=== PATIENT | male | born 1940 | race Caucasian/White ===

== ENCOUNTER 2017-10-29 16:31 | Emergency (ER) | payer MEDICARE ==
--- NOTE | 2017-10-29 16:59 | ED.PDOC ---
History of Present Illness - General Chief Complaint: Neuro Symptoms/Deficits Stated Complaint: dizzness Time Seen by Provider: 10/29/17 16:48 Source: patient, family Exam Limitations: no limitations - History of Present Illness Timing/Duration: 1 week Severity: moderate Improving Factors: rest Worsening Factors: movement Associated Symptoms: denies symptoms Allergies/Adverse Reactions: Allergies NO KNOWN ALLERGY Allergy (Verified 10/29/17 16:55) Review of Systems - Review of Systems Constitutional: Denies: chills, diaphoresis, fever, malaise, weakness EENTM: Denies: eye pain, blurred vision, tearing, double vision, ear pain, ear discharge, nose pain, nose congestion, throat pain, throat swelling, mouth pain , mouth swelling Respiratory: Denies: cough, short of breath Cardiology: Denies: chest pain, edema, palpitations, syncope Gastrointestinal/Abdominal: Denies: abdominal pain, constipation, diarrhea, nausea, vomiting Genitourinary: Denies: dysuria, frequency Musculoskeletal: Denies: joint pain, joint swelling Skin: Denies: dryness, lesions Neurological: States: weakness, other - when he tries to walk or stand up he feels unstead. Denies: depressed, headache Endocrine: Denies: increased hunger, increased thirst, increased urine Hematologic/Lymphatic: Denies: blood clots, easy bleeding All other Systems: Reviewed and Negative Past Medical History (General) - Patient Medical History Hx Seizures: No Hx Stroke: No Hx Dementia: No Hx Asthma: No Hx Cardiac Disorders: Yes Hx Pacemaker: No Surgical History: angioplasty - Social History Hx Tobacco Use: No Hx Substance Use: No Family Medical History - Family History Grandparents Family History: Unknown Physical Exam - Physical Exam General Appearance: Alert, Comfortable, Well Developed, Well Groomed, Well Hydrated, Well Nourished Eye Exam: bilateral normal ENT Exam: normal ENT inspection, TMs normal Neck: non-tender, full range of motion, supple, normal inspection Respiratory: chest non-tender, lungs clear, normal breath sounds, no respiratory distress, no accessory muscle use Cardiovascular/Chest: normal peripheral pulses, regular rate, rhythm, no edema, no gallop, no JVD, no murmur Peripheral Pulses: radial,right: 2+, radial,left: 2+ Gastrointestinal/Abdominal: normal bowel sounds, non tender, soft, no organomegaly, no pulsatile mass Back Exam: normal inspection, no CVA tenderness, no vertebral tenderness Extremities Exam: non-tender, normal range of motion Mental Status: alert, oriented x 3 supervisor shop Exam: normal hearing, normal speech, PERRL, other - no facial droop, paresthesia, gaze palsy Coordination/Gait: abnormal gait, positive Romberg's sign Motor/Sensory: no motor deficit - has some dysdiadikokenesia on the left, no sensory deficit, no pronator drift Skin Exam: normal color, warm/dry Progress - Progress Progress: 10/29/17 17:01 A CHART REVIEW HAS BEEN PERFORMED, THIS PATIENT HAS NOT BEEN SEEN IN THIS ED PRIOR TO TODAY. here with a LBBB from the clinic without chest pain, SOB, COUGH. HAS SOME LEFT DYSDIADIKOKENESIA, HAS + RHOMBERG, HAS SOME ATAXIA. WILL EVAL FOR CVA, ELECTROLYTE DERANGEMENT, DOES NOT APPEAR TO HAVE PROXIMAL MUSCLE WEAKNESS. 10/29/17 18:48 CT OF THE HEAD IS UNREMARKABLE. BLOOD WORK SHOWS A MILDLY ELEVATED CP MB. WE DO NOT HAVE MRI TO EVAL FOR CEREBELLAR INFARCTION. ALTHOUGH HE IS MULTIPLE DAYS OUT. I HAVE TALKED TO JACKIE WATERMAN FEELS PATIENT NEEDS TO BE TRANSFERRED RATHER THAN ADMITTED. I HAVE DISCUSSED WITH DR ADAL BAILEY WILL TAKE THE PATIENT IN TRANSFER FOR MRI AND LIKELY NEUROLOGY EVAL IN THE AM. - Results/Orders Results/Orders: 10/29/17 16:50 Telemetry ONCE Laboratory Results - last 24 hr 10/29/17 10/29/17 10/29/17 16:50 16:59 16:59 WBC 5.6 RBC 5.15 Hgb 14.0 Hct 42.8 MCV 83.2 MCH 27.3 MCHC 32.8 L RDW 14.9 H Plt Count 213 MPV 7.2 L Absolute Neuts (auto) 3.80 Absolute Lymphs (auto) 1.10 Absolute Monos (auto) 0.60 Absolute Eos (auto) 0.10 Absolute Basos (auto) 0.00 Neutrophils % 67.7 Lymphocytes % 19.3 L Monocytes % 11.4 H Eosinophils % 1.1 Basophils % 0.5 ESR Sodium 140 Potassium 3.9 Chloride 105 Carbon Dioxide 26 Anion Gap 12.9 BUN 22 H Creatinine 0.97 BUN/Creatinine Ratio 22.7 H Random Glucose 92 Serum Osmolality 282.4 Calcium 8.9 Total Bilirubin 0.5 AST 30 ALT 35 Alkaline Phosphatase 99 Creatine Kinase 158 CK-MB (CK-2) 5.3 H* CK-MB (CK-2) % Not Reportable Troponin I < 0.02 Serum Total Protein 7.8 Albumin 4.0 Globulin 3.8 H Albumin/Globulin Ratio 1.1 10/29/17 16:59 WBC RBC Hgb Hct MCV MCH MCHC RDW Plt Count MPV Absolute Neuts (auto) Absolute Lymphs (auto) Absolute Monos (auto) Absolute Eos (auto) Absolute Basos (auto) Neutrophils % Lymphocytes % Monocytes % Eosinophils % Basophils % ESR 5 Sodium Potassium Chloride Carbon Dioxide Anion Gap BUN Creatinine BUN/Creatinine Ratio Random Glucose Serum Osmolality Calcium Total Bilirubin AST ALT Alkaline Phosphatase Creatine Kinase CK-MB (CK-2) CK-MB (CK-2) % Troponin I Serum Total Protein Albumin Globulin Albumin/Globulin Ratio Departure - Departure Clinical Impression: Ataxia Time of Disposition: 18:51 Disposition: Transfer to Hospital Condition: Fair Departure Forms: ED Discharge - Pt. Copy, Patient Portal Self Enrollment Transfer to Outside Facility - Transfer Information Accepting Provider:: DR ADAL BAILEY Accepting Facility: [facility] Reason for Transfer: specialized care not available
--- NOTE | 2017-10-29 17:28 | CT ---
Procedure: CT HEAD WITHOUT IV CONTRAST Exam Date: 10/29/2017 4:48 PM [employer] Ordering Provider: Mac Sales Clinical Indication: vertigo, ataxia Comparison: None Technique: CT images of the head were obtained without contrast administration. Coronal and sagittal reformats were obtained. This exam was performed according to our departmental dose-optimization program which includes automated exposure control, adjustment of the mA and/or kV according to patient size and/or use of iterative reconstruction technique. Findings: There is no acute cortical infarction, hemorrhage, midline shift, mass effect, or hydrocephalus. The calvaria and skull base are unremarkable. Slightly diminutive appearance of the bilateral maxillary sinuses. Mucosal thickening involves the ethmoid air cells. Impression: No acute cortical infarction or hemorrhage. Electronically signed by: Cullen Minor MD 10/29/2017 5:28 PM [employer]
[2017-10-29] MEDS ORDERED: KETOROLAC TROMETHAMINE INJ 30 MG/ML VIAL IV ONE (19:15)
[2017-10-29 20:54] VITALS: BP 152/77; TEMP 98.1; O2SAT 96
== END 2017-10-29 21:40 | disposition short-term general hospital (02) ==
LOC: ER 16:31
DX: R27.0 Ataxia, unspecified (principal); I44.7 Left bundle-branch block, unspecified; Z98.61 Coronary angioplasty status